=== PATIENT | female | born 1995 | race Caucasian/White ===

== ENCOUNTER 2017-01-07 10:12 | Emergency (ER) | payer BC ==
--- NOTE | 2017-01-07 10:18 | EDM.PDOC ---
ED HPI GENERAL MEDICAL PROBLEM - General Chief Complaint: Bite:Animal, Insect Stated Complaint: [facility] Time Seen by Provider: 01/07/17 10:18 - History of Present Illness INITIAL COMMENTS - FREE TEXT/NARRATIVE: 21-year-old female brought in by EMS after sustaining a wasp or bee sting. Plan hour to an hour and a half ago the patient was stung by a bee or wasp she' s not sure exactly what was. This occurred in the right lower leg. Patient had instant pain and swelling to the area this was followed up with some shortness of breath. She then developed a rash and itching all over. She did take 50 mg of Benadryl and called EMS. The patient has had some improvement with her symptoms she is no longer short of breath she has a rash and itches all over. The patient has not had reactions to hymenoptera stings in the past. She is not aware of any prior stings however. Past medical history is unremarkable she takes something for acne we are trying to clarify this. Patient denies any potential at this time. - Related Data Allergies Allergy/AdvReac Type Severity Reaction Status Date / Time amoxicillin Allergy Hives Verified 01/07/17 10:24 minocycline Allergy Hives Verified 01/07/17 10:24 Penicillins Allergy Hives Verified 01/07/17 10:24 Home Meds: Home Meds Cephalexin [Keflex] 500 mg PO DAILY 01/07/17 [History] EPINEPHrine [Epipen 2-Eliseo] 0.3 mg IJ ASDIRECTED #1 ml 01/07/17 [Rx] Famotidine [Pepcid] 20 mg PO BID #20 tablet 01/07/17 [Rx] Spironolactone [Aldactone] 100 mg PO DAILY 01/07/17 [History] predniSONE 60 mg PO WITHBREAKFAST #12 tablet 01/07/17 [Rx] ED ROS GENERAL - Review of Systems Review Of Systems: See Below Constitutional: Denies: Fever, Chills HEENT: Denies: Rhinitis, Sinus Problem, Throat Pain, Throat Swelling Respiratory: Reports: Shortness of Breath (This was transient and has improved) Cardiovascular: Reports: No Symptoms Endocrine: Reports: No Symptoms GI/Abdominal: Reports: No Symptoms : Reports: No Symptoms Musculoskeletal: Reports: No Symptoms Neurological: Reports: No Symptoms Psychiatric: Reports: No Symptoms. Denies: Agitation, Anxiety ED EXAM, ANIMAL BITE - Physical Exam Exam: See Below Exam Limited By: No Limitations General Appearance: Alert, No Apparent Distress Eye Exam: Bilateral Eye: Normal Inspection Ears: Normal External Exam, Normal Canal, Hearing Grossly Normal, Normal TMs Nose: Normal Inspection, Normal Mucosa, No Blood Throat/Mouth: Normal Inspection, Normal Lips, Normal Teeth, Normal Gums, Normal Oropharynx, Normal Voice, No Airway Compromise Head: Atraumatic, Normocephalic Neck: Normal Inspection, Supple, Non-Tender, Full Range of Motion. No: Lymphadenopathy (L), Lymphadenopathy (R) Respiratory/Chest: Lungs Clear, Normal Breath Sounds, No Accessory Muscle Use Cardiovascular: Normal Peripheral Pulses, Regular Rate, Rhythm, No Edema, No Murmur GI/Abdominal: Normal Bowel Sounds, Soft, Non-Tender Back Exam: Normal Inspection. No: CVA Tenderness (L), CVA Tenderness (R) Extremities: Normal Inspection, No Pedal Edema, Other (Localized swelling right medial proximal calf) Skin Exam: Rash (Patient has hives over mostly her trunk to a lesser degree her extremities), Other Course - Vital Signs Last Recorded V/S: Last Vital Signs Temp 37.1 C 01/07/17 10:17 Pulse 66 01/07/17 10:17 Resp 16 01/07/17 10:17 BP 125/95 H 01/07/17 10:17 Pulse Ox 99 01/07/17 10:17 - Orders/Labs/Meds Meds: Medications Discontinued Medications Generic Name Dose Route Start Last Admin Trade Name Luis Eq PRN Reason Stop Dose Admin Famotidine 40 mg 01/07/17 10:24 01/07/17 10:43 Pepcid IVPUSH 01/07/17 10:25 40 mg ONETIME ONE Administration Methylprednisolone Sodium Succinate 125 mg 01/07/17 10:25 01/07/17 10:40 Solu-Medrol IVPUSH 01/07/17 10:26 125 mg ONETIME ONE Administration - Re-Assessments/Exams Free Text/Narrative Re-Assessment/Exam: 01/07/17 10:31 Patient symptoms a little concerning for the shortness of breath and the continued high she'll receive Solu-Medrol and Pepcid she's already received Benadryl we will wait and watch. 01/07/17 13:27 Patient is doing much better her rash is nearly completely resolved she's not had any breathing difficulties or any other symptoms we will discharge her at this point. We will discharge with an EpiPen 4 days of prednisone one week of Pepcid and Benadryl for the next 24 hours and then as needed she will follow-up in the clinic this next week. Departure - Departure Time of Disposition: 13:28 Disposition: Home, Self-Care 01 Clinical Impression: Hymenoptera reaction - Discharge Information Prescriptions: EPINEPHrine [Epipen 2-Eliseo] 0.3 mg IJ ASDIRECTED #1 ml Famotidine [Pepcid] 20 mg PO BID #20 tablet predniSONE 60 mg PO WITHBREAKFAST #12 tablet Forms: ED Department Discharge Additional Instructions: Return to the emergency room with any questions or problems. Follow[facility]up at the [facility] early next week for recheck. You been started on prednisone take this first thing in the morning with breakfast for the next 4 mornings starting tomorrow morning. Each doses is 3 20 mg tablets. Start Pepcid this can be obtained [id number] 20 mg twice daily for 1 week and then once daily if needed. Use Benadryl 25 mg 4 times a day for the next 24 hours and then only as needed.
[2017-01-07] MEDS ORDERED: Famotidine 20 MG/2 ML SDV IVPUSH ONE (10:24)
[2017-01-07] MEDS ORDERED: methylPREDNISolone Sodium Succinate 125 MG/2 ML SDV IVPUSH ONE (10:25)
[2017-01-07 13:52] VITALS: BP 107/80
== END 2017-01-07 13:50 | disposition home or self-care (01) ==
LOC: JD.ED 10:12
DX: T63.481A Toxic effect of venom of other arthropod, accidental (unintentional), initial encounter (principal); Z79.899 Other long term (current) drug therapy; Z79.2 Long term (current) use of antibiotics; Z88.0 Allergy status to penicillin; Z88.1 Allergy status to other antibiotic agents
CPT/HCPCS: 96374; 96375; 99284; J2930